=== PATIENT | male | born 1930 | race Caucasian/White ===

== ENCOUNTER 2016-07-06 11:23 | Emergency (ER) | payer MEDICARE, OTHER ==
[2016-07-06] MEDS ORDERED: DIPHTH,PERTUSS(ACELL),TET VAC 0.5 ML VIAL IM ONE ×2 (13:14→13:28)
--- OUTSIDE RECORDS SUMMARY | 2016-07-06 13:14 | XMS REPORT | Continuity of Care Document ---
:1930 Author Organization [facility] ([facility]) Address [address] [place] [address] Phone [phone] Care Team Providers Name Role Phone Prisca Sher Franci Primary Care Provider [phone] Source Comments This disclosure is being made pursuant to the Care Everywhere program, applicable federal and state laws, and may not contain all informaitonavailable regarding this patient.[facility] ([facility]) Active Allergies and Adverse Reactions Allergen Noted Date Severity Reactions Comments Atorvastatin 10/05/2008 OTHER Muscle spasms Current Medications Prescription Sig. Disp. Refills Start Date End Date Status hydrochlorothiazide 12.5 mg Take 12.5 mg by Active capsule mouth daily. gabapentin 100 mg capsule Take 100 mg by Active mouth 3 times daily. glyBURIDE 5 mg tablet Take 5 mg by Active mouth every morning with breakfast. lisinopril 10 mg tablet Take 10 mg by Active mouth daily. multivitamin with minerals Take 1 capsule Active ([facility]) 63822 by mouth 2 times unit-226 mg-200 unit per daily with capsule meals. 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 Right Eye Left Eye Time To Recurrence: Time To Recurrence: Date VA (D cc) CMT Status Procedure VA (D cc) CMT Status Procedure Cmts 06/09/2002 PDT 07/14/2002 PDT 12/18/2006 PDT 03/12/2007 PDT 11/12/2007 Avastin 08/24/2009 Avastin # [id number] 07/26/2010 2060 20/100 Avastin # [id number] 08/30/2010 2060 20/150 No injection Social History Tobacco Use Types Packs/Day Years Used Date Former Smoker Smokeless Tobacco: Never Used Alcohol Use Drinks/Week oz/Week Comments No Last Filed Vital Signs Vital Sign Reading Time Taken Blood Pressure 144/69 10/20/2015 10:57 AM CDT Pulse 61 10/20/2015 10:57 AM CDT Temperature 36.2 C (97.2 F) 10/20/2015 10:56 AM CDT Respiratory Rate - - Height 1.702 m (5' 7.01") 10/20/2015 10:56 AM CDT Weight 91.15 kg (200 lb 15.2 oz) 10/20/2015 10:56 AM CDT Body Mass Index 31.47 10/20/2015 10:56 AM CDT Oxygen Saturation - - Plan of Care Health Maintenance Due Date Last Done Comments Hepatitis B Vaccine (1 of 3 - Primary 1930 Series) Tdap Vaccine 1941 DIABETIC: Cholesterol 1950 Diabetic: Hdl 1950 DIABETIC: Hemoglobin A1C 1950 Diabetic: Ldl 1950 DIABETIC: Microalbumin 1950 DIABETIC: Triglycerides 1948 Td Vaccine 1950 Colonoscopy 1982 Zoster Vaccine 1992 Pneumococcal Vaccine (1 of 2 - PCV13) 1997 DIABETIC: Foot Exam 12/14/2013 Influenza Vaccine: Seasonal (#1) 10/02/2015 DIABETIC: Retinal Eye Exam 05/30/2016 05/31/2015, 05/03/2015, 04/03/2015 Results from Last 3 Months Not on file
[2016-07-06] MEDS ORDERED: CEPHALEXIN MONOHYDRATE 250 MG CAPSULE PO ONE (13:15)
--- NOTE | 2016-07-06 13:23 | ERNOTE ---
Medical Problem HPI - Narrative Date of Service: 07/06/16 - General Chief Complaint: Laceration Time Seen by Provider: 07/06/16 13:00 Source: patient Exam Limitations: no limitations - Immun/Allergies/Home Medications Immunizations: IMMUNIZATION HX Immunizations Up to Date Yes History of Influenza Vaccine No Hx Pneumococcal Vaccination No Allergies/Adverse Reactions: Allergies No Known Allergies Allergy (Verified 10/01/15 04:36) Home Medications: HOME MEDICATIONS Hydrochlorothiazide 12.5 mg PO DAILY 02/13/13 [Last Taken 09/30/15 09:00] Lisinopril [Zestril] 10 mg PO DAILY 02/13/13 [Last Taken 09/30/15 09:00] glyBURIDE [Micronase] 10 mg PO BID 02/13/13 [Last Taken 09/30/15 21:00] Gabapentin 100 mg PO TID 10/01/15 [Last Taken 09/30/15 21:00] Ciprofloxacin HCl [Cipro] 500 mg PO BID #28 tab 10/02/15 [Last Taken Unknown] metroNIDAZOLE [Flagyl] 500 mg PO Q8H #42 tablet 10/02/15 [Last Taken Unknown] Cephalexin Monohydrate [Keflex] 500 mg PO Q12H #10 cap 07/06/16 [Last Taken Unknown] - History of Present History Narrative: 86-year-old male presents to the emergency room for a laceration to his right hand. Patient states that he was using a table saw when it caught the corner of his hand. Date (Duration): 07/06/16 Timing: constant Severity: mild Modifying Factors - (Improves): Present: rest Modifying Factors - (Worsens): Present: movement Review of Systems - Review of Systems Constitutional: Present: no symptoms reported EYE: Present: no symptoms reported ENT: Present: no symptoms reported Respiratory: Present: no symptoms reported Cardiology: Present: no symptoms reported Gastrointestinal/Abdominal: Present: no symptoms reported Genitourinary: Present: no symptoms reported Musculoskeletal: Present: no symptoms reported Skin: Present: See HPI Neurological: Present: no symptoms reported Endocrine: Present: no symptoms reported Hematologic/Lymphatic: Present: no symptoms reported Psych: Present: no symptoms reported - Patient's Past Medical History Patient History - Medical: Diabetes Type 2 Patient History - Cardiac/Respiratory: No pertinent hx Patient History - Cancer: No Hx of Cancer Patient History - Surgical Procedures: Appendectomy, T & A, Other Patient History - Other: None - Family History Mother Family History - Medical: , No pertinent hx Father Family History - Medical: , No pertinent hx - Social History Living Situations: home Abuse History: No History of abuse Psych History: No pertinent hx Smoking Status: Former smoker Alcohol Use: none Drug Use: none - Immunizations Immunizations Up to Date: Yes Hx Pneumococcal Vaccination: No History of Influenza Vaccine: No Physical Exam - Physical Exam Narrative: patient has a 3x3x1 cm laceration to the medical aspect of his right hand, ulnar side. Muscle is able to seen into his wound and some tissue is missing. General Appearance: Present: wd/wn, alert, no apparent distress Eye Exam: Normal inspection: bilateral Ears, Nose, Throat: Present: normal ENT inspection, normal pharynx Neck: Present: normal inspection, nontender Respiratory: Present: no respiratory distress, normal breath sounds, no accessory muscle use, chest nontender, lungs clear Cardiovascular/Chest: Present: regular rate, rhythm, no murmur, normal peripheral pulses Gastrointestinal/Abdominal: Present: normal bowel sounds, soft Back Exam: Present: normal inspection, normal range of motion Extremity Exam: Present: normal except - - laceration, no edema Neurological Exam: Present: alert, oriented, normal mood/affect, no motor/ sensory deficits Skin Exam: Present: normal color, warm/dry Lymphatic Exam: Present: no adenopathy ED Progress - Vital Signs Patient's Vital Signs:: I have reviewed the patient's vital signs. Vital Signs: Vital Signs 07/06/16 11:50 Temperature 36.8 C Pulse Rate 58 L Respiratory 12 Rate Blood Pressure 134/62 O2 Sat by Pulse 96 Oximetry - Progress/Reassessment Chief Complaint: Laceration Progress:: Improved Plan - Plan Plan: Dr rowe here to examine and suture patients hand. patient will follow up with him on friday per Dr burks orders. Departure - Departure Clinical Impression: Laceration Disposition: Home Follow Up Needed Condition: Good Instructions: Laceration Care, Adult, [id number], Stitches, Jr, or Adhesive Wound Closure, [id number] Additional Instructions: Follow up with Dr rowe at 4pm friday in his office. Take you prescribed antibiotics as directed. your first dose was given in the ER Referrals: Prisca Sher, DO [Primary Care Provider] - Prescriptions: Cephalexin Monohydrate [Keflex] 500 mg PO Q12H #10 cap
--- NOTE | 2016-07-06 13:25 | OR ---
Operative Report - Dictated Report Narrative: OPERATIVE REPORT DATE OF OPERATION: 07/06/2016 PREOPERATIVE DIAGNOSIS: 4 cm laceration hypo-thenar aspect left hand POSTOPERATIVE DIAGNOSIS: 4 cm laceration hypo-thenar aspect left hand involving skin, subcutaneous tissue, fascia and hyperthenar musculature OPERATION: Repair laceration left hand SURGEON: Martin Valdivia MD ANESTHESIA: Local INDICATIONS FOR PROCEDURE: The patient is an 86-year-old male who was using a table saw and cut his hand at about 11:00 this morning. The wound has been cleaned and anesthetized by Mary Hernandez NP The patient reports the area is now numb from the local anesthetic but he is able to move his finger. FINDINGS: 4 cm laceration involving skin, subcutaneous tissue, fascia, and abductor digiti minimi muscle NARRATIVE OF PROCEDURE: The laceration was prepped with Betadine and isolated with a sterile drape. The wound was prudently explored and there was no evidence of foreign body. The wound did not extend to the bone. The fascia was reapproximated with interrupted sutures of 3-0 chromic. The skin and subcutaneous tissue was approximated with interrupted vertical mattress sutures of 3-0 nylon. The area was washed and dried. A dressing of Xeroform gauze, Mepilex border, and Medipore tape was applied. The patient tolerated the procedure well without complication. There was no measurable blood loss. His finger remained numb from the anesthetic but he had full function of the fifth finger. He will be discharged home with instructions to keep the wound dry and covered. He has phone numbers to call prn questions or signs of infection. He will be given a prescription for Keflex. A return office appointment is scheduled for 07/08/2016 and 4 PM. Reviewed and electronically signed
[2016-07-06] MEDS ORDERED: CEPHALEXIN MONOHYDRATE 250 MG CAPSULE ONE (13:31)
[2016-07-06 13:35] VITALS: BP 146/61
== END 2016-07-06 13:41 | disposition home or self-care (01) ==
LOC: ER 11:23
PROC: 0JQK0ZZ Repair Left Hand Subcutaneous Tissue and Fascia, Open Approach (ICD-10-PCS; principal; 2016-07-06)
DX: S61.411A Laceration without foreign body of right hand, initial encounter (principal); W27.0XXA Contact with workbench tool, initial encounter; Z87.891 Personal history of nicotine dependence; Z23 Encounter for immunization